=== PATIENT | female | born 1965 | race Two or more races ===

== ENCOUNTER 2020-08-17 06:13 | Day surgery (SDC) | payer OTHER ==
[~2020-08-17 06:13] MED LIST: ACID REDUCER20 M1 PO; ANASTROZOLE1 MG PO; BUTAL PO; CLONAZEPAM1 M1 PO; DICYCLOMIN10 MG/5 M1 PO; GLIMEPIRIDE1 MG PO; LEVOTHYROXINE25 MCG PO; PEXEVA40 MG PO; RESTORIL30 M1 PO; TIVORBEX20 MG; TOPROL XL50 M1 PO; ZESTRIL20 MG PO
[2020-08-17] MEDS ORDERED: CIPROFLOXA400 MG/200 PO (08:40)
[2020-08-17] MEDS ORDERED: CIPRO500 MG PO (08:41)
[2020-08-17] MEDS ORDERED: ULTRAM50 MG PO (08:41)
[2020-08-17] MEDS ORDERED: SURFAK240 M1 PO (08:41)
[2020-08-17] MEDS ORDERED: POLY119PG PO (08:42)
[2020-08-17] MEDS ORDERED: PEPCID AC20 MG PO (08:42)
== END 2020-08-17 10:40 | disposition home or self-care (01) ==
LOC: CIR.AMB 06:13
PROVIDERS: ATTEND Surgery
DX: K80.10 Calculus of gallbladder with chronic cholecystitis without obstruction (principal); K43.9 Ventral hernia without obstruction or gangrene; K42.9 Umbilical hernia without obstruction or gangrene; Z20.828 Contact with and (suspected) exposure to other viral communicable diseases; K66.0 Peritoneal adhesions (postprocedural) (postinfection)